=== PATIENT | female | born 1980 | race Asian ===

== ENCOUNTER 2020-11-18 22:21 | Emergency (ER) | payer OTHER ==
[~2020-11-18] VITALS: Ht 157.5 cm; Wt 62.7 kg
[2020-11-18] MEDS ORDERED: HYDROmorphone 2 MG/ML VIAL IVP ONE (22:45)
[2020-11-18] MEDS ORDERED: IV NORMAL SALINE 1000ML BAG 1,000 ML IV ONE (22:45)
--- NOTE | 2020-11-18 22:47 | PHYS DOC ---
General Adult EDM: Chief Complaint: MECHANICAL FALL HPI: HPI: 40-year-old female past medical history of ebu-cbomdmp-bmyjtkdtm diabetes, presents the ED brought in by EMS with complaints of right forearm/elbow/shoulder pain and left wrist pain patient was outside with her kids, s/p 100mcg of fentanyl. Patient reports she fell forward, landing on right flexed hand ([id number]) and rolled her right side hitting the right side of her head. Denies any alcohol or drug use. Is unsure if her tetanus is up-to-date. Also complains of headache and points to the right parietal skull as location of blunt injury. Denies any prior injury to right upper extremity. PSH-tubal ligation. Scheduling Representative services were used-[facility]. Review of Systems: Review of Systems: Constitutional: Denies fever or chills. [] Eyes: Denies change in visual acuity. [] HENT: Denies nasal congestion or sore throat. [] Respiratory: Denies cough or shortness of breath. [] Cardiovascular: Denies chest pain or edema. [] GI: Denies abdominal pain, nausea, vomiting, bloody stools or diarrhea. [] : Denies dysuria. [] Musculoskeletal: Denies back pain or joint pain. [] Integument: Denies rash. [] Neurologic: Denies headache, focal weakness or sensory changes. [] Endocrine: Denies polyuria or polydipsia. [] Lymphatic: Denies swollen glands. [] Psychiatric: Denies depression or anxiety. [] Heart Score: C/O Chest Pain: No Risk Factors: Risk Factors: DM, Current or recent (<one month) smoker, HTN, HLP, family history of CAD, obesity. Risk Scores: Score 0 - 3: 2.5% MACE over next 6 weeks - Discharge Home Score 4 - 6: 20.3% MACE over next 6 weeks - Admit for Clinical Observation Score 7 - 10: 72.7% MACE over next 6 weeks - Early Invasive Strategies Allergies: Allergies: Allergies Coded Allergies Type Severity Reaction Last Updated Verified No Known Drug Allergies 11/18/20 No Physical Exam: PE: Constitutional: Well developed, well nourished, in pain with RUE movement, no pain out of proportion, non-toxic appearance. HENT: Normocephalic, atraumatic, no midline neck pain, no facial bone tendern ess, no septal hematoma, no periorbital ecchymosis Eyes: PERRLA, EOMI, conjunctiva normal, no discharge. Neck: Normal range of motion, supple, Cardiovascular: S1/2 present, regular rhythm Lungs & Thorax: Speaking in full sentences, bilateral equal chest rise, no tachypnea or increased work of breathing Abdomen: soft, no tenderness, Skin: Warm, dry, Back: No midline tenderness or step-offs, no CVA tenderness. [] Extremities: No cyanosis, bilateral brachial and radial pulses intact, cap refill less than 1 second, 3 mm abrasion to left palm, 2 abrasions over dorsal aspect of distal ulna, no skin tinting/exposed bone, no pain over snuffbox bl, no wrist pain, both hands/wrists w/from, no focal shouder or elbow pain bl, Neurologic: Alert and oriented X 3, normal motor function, normal sensory function, no focal deficits noted. [] Psychologic: Affect normal, judgement normal, mood normal. [] EKG: EKG: [] Radiology/Procedures: Radiology/Procedures: IMAGING REPORT Signed PATIENT: MARIA GUADALUPE CARDONA ACCOUNT: [id number] : 1980 LOCATION: ER AGE: 40 SEX: F EXAM STATUS: REG ER ORD. PHYSICIAN: NARCISO GRIFFIN DO REASON: fall, right headache PROCEDURE: CT HEAD AND CERVICAL SPINE WO CT HEAD AND C-SPINE WO History: Reason: fall, right headache / Spl. Instructions: / History: Comparison: None. Technique: Noncontrast CT imaging was performed of the head and cervical spine. Coronal and sagittal reconstructions were performed. Exposure: One or more of the following individualized dose reduction techniques were utilized for this examination: 1. Automated exposure control 2. Adjustment of the mA and/or kV according to patient size 3. Use of iterative reconstruction technique. Findings: Head CT: No intracranial hemorrhage. No mass effect. No hydrocephalus. Extra- axial spaces are unremarkable. Imaged orbits are unremarkable. Imaged paranasal sinuses and mastoid air cells are clear. No acute calvarial fracture. Cervical spine CT: Motion degraded evaluation. Normal vertebral body height and alignment. No fracture. Soft tissues unremarkable. Impression: Head CT: 1. No acute intracranial abnormality. Cervical spine CT: 1. No acute fracture or subluxation of the cervical spine. Electronically signed by: Josue Rollins DO (11/19/2020 1:02 AM) [employer]ESH DICTATED and SIGNED BY: JOSUE ROLLINS DO DATE: 11/19/20 [id number] 0 IMAGING REPORT Signed PATIENT: MARIA GUADALUPE CARDONA ACCOUNT: [id number] : 1980 LOCATION: ER AGE: 40 SEX: F EXAM STATUS: REG ER ORD. PHYSICIAN: NARCISO GRIFFIN DO REASON: forearm deformity/pain PROCEDURE: WRIST 2V RIGHT XR RT WRIST 2 VIEWS, XR HAND_RIGHT 3 VIEWS History: Reason: forearm deformity/pain / Spl. Instructions: / History: Technique: 2 views right wrist and 3 views right hand Comparison: None. Findings: Acute displaced right distal radius and ulnar fractures partially imaged. Normal alignment of the wrist. No additional fracture. Normal alignment of the hand. Impression: 1. Acute displaced right distal radius and ulnar fractures partially imaged. Electronically signed by: Josue Rollins DO (11/19/2020 1:08 AM) [employer]ARESH DICTATED and SIGNED BY: JOSUE ROLLINS DO DATE: 11/19/20 [id number] 0 IMAGING REPORT Signed PATIENT: MARIA GUADALUPE CARDONA ACCOUNT: [id number] : 1980 LOCATION: ER AGE: 40 SEX: F EXAM STATUS: REG ER ORD. PHYSICIAN: NARCISO GRIFFIN DO REASON: forearm deformity/pain PROCEDURE: SHOULDER 2+V RIGHT XR FOREARM_RIGHT 2 VIEWS, XR SHOULDER_RIGHT 2+ VIEWS, XR HUMERUS_RT 2 VIEWS History: Reason: forearm deformity/pain / Spl. Instructions: / History: Technique: 2 views right shoulder, 2 views right humerus and 2 views right forearm Comparison: None. Findings: Right shoulder Normal alignment of the glenohumeral and acromioclavicular joints. No fracture. Right humerus: Normal alignment. No fracture. Right forearm: Acute displaced right distal radius fracture with anterior displacement of the distal fracture fragment and rotation. Acute comminuted distal ulnar fracture with evaluation and displacement. Impression: 1. Acute displaced right distal radius and ulnar fractures. Electronically signed by: Josue Rollins DO (11/19/2020 1:06 AM) GREG[employer]Y DICTATED and SIGNED BY: JOSUE ROLLINS DO DATE: 11/19/20 [id number] 0 IMAGING REPORT Signed PATIENT: MARIA GUADALUPE CARDONA ACCOUNT: [id number] : 1980 LOCATION: ER AGE: 40 SEX: F EXAM STATUS: REG ER ORD. PHYSICIAN: NARCISO GRIFFIN DO REASON: forearm deformity/pain PROCEDURE: HAND LEFT 2V XR HAND_LEFT 2 VIEWS History: Reason: forearm deformity/pain / Spl. Instructions: / History: Technique: 2 views left hand. Comparison: None. Findings: Normal alignment. No fracture. Soft tissues unremarkable. Impression: 1. No acute osseous abnormality. Electronically signed by: Josue Rollins DO (11/19/2020 1:09 AM) ANEESH DICTATED and SIGNED BY: JOSUE ROLLINS DO DATE: 11/19/20 [id number] 0 IMAGING REPORT Signed PATIENT: MARIA GUADALUPE CARDONA ACCOUNT: [id number] : 1980 LOCATION: ER AGE: 40 SEX: F EXAM STATUS: REG ER ORD. PHYSICIAN: NARCISO GRIFFIN DO REASON: fracture-POST REDUCTION PROCEDURE: FOREARM RIGHT XR FOREARM_RIGHT 2 VIEWS History: Reason: fracture-POST REDUCTION / Spl. Instructions: / History: Technique: 2 views right forearm Comparison: November 19, 2020 Findings: Interval reduction right distal radial and ulnar fractures. Improved alignment of the comminuted ulnar fracture. There is increased anterior displacement of the distal radial fracture. Impression: 1. Interval reduction right distal radius and ulnar fractures. 2. Increased anterior displacement of the distal radial fracture. Improved alignment of the ulnar fracture. Electronically signed by: Josue Rollins DO (11/19/2020 5:00 AM) ANEESH DICTATED and SIGNED BY: JOSUE ROLLINS DO DATE: 11/19/20 [id number] 0 Impression: Patient was informed of findings. Pressures on the splint applied by RN. The splint is checked by myself, with appropriate stabilization of the injury. Distal capillary refill normal, less than 1 second, and distal neurologic function intact. Patient placed in finger traps with traction. Course & Med Decision Making: Course & Med Decision Making Pertinent Labs and Imaging studies reviewed. (See chart for details) Concern for closed right ulnar and radial fracture s/p foosh injury. CT head/neck with no acute process. No midline neck pain. D/w ortho, Dr. Baldwin who recommended sugar tong splint, finger trap traction and repeat x-ray for alignment-recommends outpatient Ortho evaluation within 1 week. Repeat right forearm x-ray with some improvement in alignment. S/p ketamine, Toradol and Dilaudid and states finger traps with splint, pain is well tolerated. Normal cap refill and skin turgor/sensation intact.Will discharge home with strict ED return precautions were given for severe pain (compartment syndrome), neurologic deficits, skin color changes or repeat injury. Encouraged urgent outpatient follow-up with PMD and Ortho for outpatient management. Life-threatening processes were considered but are low suspicion at this time, given history, physical exam and ED workup. Pt was educated on all prescription medications and adverse effects. All patient's questions were answered and pt was stable at time of discharge. Life/limb-threatening differential includes but is not limited to, trauma (fracture, dislocation, laceration, compartment syndrome, tendon or ligament injury), neurovascular injury or deficitcva/tia, infection (osteomyelitis, ab scess, cellulitis, septic arthritis, necrotizing fasciitis), deep vein thrombosis, renal/cardiac/liver disease, medication adverse effect, lymphedema/anasarca, vascular insufficiency or malignancy, I spoken with the patient and her caregivers. I explained the patient's condition, diagnoses and treatment plan based on the information available to me at this time. I have answered the patient and her caregiver's questions and addressed any concerns. The patient and her caregivers have a good understanding of patient's diagnosis, condition and treatment plan as can be expected at this point. Vital signs have been stable. Patient's condition is stable and appropriate for discharge from the emergency department. Patient will pursue further outpatient evaluation with primary care physician or other designated or consulting physician as outlined in the discharge instructions. The patient and/or caregivers are agreeable to this plan of care and follow-up instructions have been explained in detail. The patient and/or caregivers have received these instructions in written form and have expressed an understanding of the discharge instructions. The patient and/or caregivers are aware that any significant change of condition or worsening of symptoms should prompt immediate return to this or the closest emergency department or call to 911. Rosemarie Disclaimer: Rosemarie Disclaimer: This electronic medical record was generated, in whole or in part, using a voice recognition dictation system. Departure Departure Impression: Primary Impression: Right radial fracture Additional Impression: Fracture of right ulna Disposition: 01 DC HOME SELF CARE/HOMELESS Condition: STABLE Referrals: JARETH BARCLAY MD Follow-up with your family physician in the next 1 to 2 weeks FOLLOW UP WITH FAMILY MEDICINE: Family Medicine Address: [address] [place] [address] Phone: [phone] Patient Instructions: Radius Fracture with Rehab-SportsMed, Splint Care, Flhx-od-Lgyk, Ulnar Collateral Ligament Injury of the Thumb-SportsMed Additional Instructions: FOLLOW UP WITH ORTHOPEDICS: within 7 days [facility] Address: [address] [place] [address] Scripts Oxycodone/Apap 5-325 (PERCOCET 5-325 MG TABLET ) 1 Each Tablet 1 TAB PO PRN Q6HRS PRN for PAIN for 4 Days, #16 TAB 0 Refills Prov: NARCISO GRIFFIN DO 11/19/20 NARCISO GRIFFIN DO Nov 18, 2020 22:47
[2020-11-19] MEDS ORDERED: HYDROmorphone 2 MG/ML VIAL IVP ONE ×2 (01:00→04:45)
--- NOTE | 2020-11-19 01:05 | RAD ---
CT HEAD AND C-SPINE WO History: Reason: fall, right headache / Spl. Instructions: / History: Comparison: None. Technique: Noncontrast CT imaging was performed of the head and cervical spine. Coronal and sagittal reconstructions were performed. Exposure: One or more of the following individualized dose reduction techniques were utilized for thi s examination: 1. Automated exposure control 2. Adjustment of the mA and/or kV according to patient size 3. Use of iterative reconstruction technique. Findings: Head CT: No intracranial hemorrhage. No mass effect. No hydrocephalus. Extra-axial spaces are unrema rkable. Imaged orbits are unremarkable. Imaged paranasal sinuses and mastoid air cells are clear. No acute ca lvarial fracture. Cervical spine CT: Motion degraded evaluation. Normal vertebral body height and alignment. No fracture. Soft tissues unremarkable. Impression: Head CT: 1. No acute intracranial abnormality. Cervical spine CT: 1. No acute fracture or subluxation of the cervical spine. Electronically signed by: Josue Rollins DO (11/19/2020 1:02 AM) GREGKENY
--- NOTE | 2020-11-19 01:08 | RAD ---
XR FOREARM_RIGHT 2 VIEWS, XR SHOULDER_RIGHT 2+ VIEWS, XR HUMERUS_RT 2 VIEWS History: Reason: forearm deformity/pain / Spl. Instructions: / History: Technique: 2 views right shoulder, 2 views right humerus and 2 views right forearm Comparison: None. Findings: Right shoulder Normal alignment of the glenohumeral and acromioclavicular joints. No fracture. Right humerus: Normal alignment. No fracture. Right forearm: Acute displaced right distal radius fracture with anterior displacement of the distal fracture fragment and rotation. Acute comminuted distal ulnar fracture with evaluation and displaceme nt. Impression: 1. Acute displaced right distal radius and ulnar fractures. Electronically signed by: Josue Rollins DO (11/19/2020 1:06 AM) ANEESH
--- NOTE | 2020-11-19 01:11 | RAD ---
XR RT WRIST 2 VIEWS, XR HAND_RIGHT 3 VIEWS History: Reason: forearm deformity/pain / Spl. Instructions: / History: Technique: 2 views right wrist and 3 views right hand Comparison: None. Findings: Acute displaced right distal radius and ulnar fractures partially imaged. Normal alignment of the wri st. No additional fracture. Normal alignment of the hand. Impression: 1. Acute displaced right distal radius and ulnar fractures partially imaged. Electronically signed by: Josue Rollins DO (11/19/2020 1:08 AM) ANEESH
--- NOTE | 2020-11-19 01:12 | RAD ---
XR HAND_LEFT 2 VIEWS History: Reason: forearm deformity/pain / Spl. Instructions: / History: Technique: 2 views left hand. Comparison: None. Findings: Normal alignment. No fracture. Soft tissues unremarkable. Impression: 1. No acute osseous abnormality. Electronically signed by: Josue Rollins DO (11/19/2020 1:09 AM) [facility]
[2020-11-19] MEDS ORDERED: OXYC1TAB15 PO (02:09)
[2020-11-19] MEDS ORDERED: KETAMINE HCL 500 MG/10 ML VIAL. IV ONE (03:45)
[2020-11-19] MEDS ORDERED: KETOROLAC 15 MG/ML VIAL. ONE (04:08)
[2020-11-19] MEDS ORDERED: KETOROLAC 15 MG/ML VIAL. IVP ONE (04:15)
[2020-11-19] MEDS ORDERED: IV NORMAL SALINE 1000ML BAG 1,000 ML IV ONE (04:45)
--- NOTE | 2020-11-19 05:02 | RAD ---
XR FOREARM_RIGHT 2 VIEWS History: Reason: fracture-POST REDUCTION / Spl. Instructions: / History: Technique: 2 views right forearm Comparison: November 19, 2020 Findings: Interval reduction right distal radial and ulnar fractures. Improved alignment of the comminuted ulna r fracture. There is increased anterior displacement of the distal radial fracture. Impression: 1. Interval reduction right distal radius and ulnar fractures. 2. Increased anterior displacement of the distal radial fracture. Improved alignment of the ulnar fr acture. Electronically signed by: Josue Rollins DO (11/19/2020 5:00 AM) ANEESH
[2020-11-19 06:48] VITALS: BP 131/58
== END 2020-11-19 07:23 | disposition home or self-care (01) ==
LOC: ER 22:21
DX: S52.91XA Unspecified fracture of right forearm, initial encounter for closed fracture (principal); S52.201A Unspecified fracture of shaft of right ulna, initial encounter for closed fracture; M25.511 Pain in right shoulder; R51.9 Headache, unspecified; M54.2 Cervicalgia; W18.09XA Striking against other object with subsequent fall, initial encounter; Y93.89 Activity, other specified; Y92.89 Other specified places as the place of occurrence of the external cause; Y99.8 Other external cause status
CPT/HCPCS: 29125; 70450; 72125; 73030; 73060; 73090; 73100; 73120; 73130; 81025; 96361; 96374; 96375; 96376; 99285; J1170; J1885; J3490; J7030